=== PATIENT | male | born 1950 | race Caucasian/White ===

== ENCOUNTER 2020-05-13 07:42 | Outpatient (REF) | payer MEDICARE, SELFPAY | END 2020-05-13 07:43 | disposition home or self-care (01) | LOC: HO.WFDLDS 07:42 | PROVIDERS: Visit Provider Internal Medicine | DX: Z20.828 Contact with and (suspected) exposure to other viral communicable diseases (principal) | CPT/HCPCS: C9803; U0003 ==

== ENCOUNTER 2020-06-18 09:40 | Outpatient (REF) | payer MEDICARE, SELFPAY | END 2020-06-18 09:41 | disposition home or self-care (01) | LOC: HO.WFDLDS 09:40 | PROVIDERS: Visit Provider Internal Medicine | DX: Z20.828 Contact with and (suspected) exposure to other viral communicable diseases (principal) | CPT/HCPCS: 36415; C9803; U0003 ==

== ENCOUNTER 2024-12-06 09:06 | Outpatient (AMB) | payer MEDICARE, MEDICAID, SELFPAY ==
--- NOTE | 2024-12-06 09:11 | MHC.PC.OV ---
Vital Signs 12/06/24 09:20 Height 5 ft 6 in Weight 180 lb 4 oz BMI 29.1 BP 124/72 Blood Pressure Location Lt brachial Position Sitting Respiration 12 Pulse 68 Pulse Source Pulse Oximeter Temp 97.2 F Temp Source Oral Pulse Oximetry (%) 96 Oxygen Delivery Method Room Air Intake Visit Reasons: Est. 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: No Allergies No Known Allergies Allergy (Verified 12/06/24 09:42) Medication List - Last Reconciled 12/06/24 by Tootie Schmitt, [facility]- albuterol sulfate 90 mcg/actuation inhalation atorvastatin 20 mg PO DAILY celecoxib 200 mg PO DAILY cetirizine 10 mg PO DAILY PRN diclofenac sodium 3% grams topical BID PRN ergocalciferol (vitamin D2) 1,250 mcg PO QWEEK escitalopram oxalate 10 mg PO DAILY fluticasone propion-salmeterol 250-50 mcg/dose (Wixela Inhub) inhalation BID fluticasone propionate 50 mcg/actuation 1 spray intranasal BID PRN gabapentin 100 mg PO BEDTIME PRN hydroxyzine HCl 50 mg PO QID PRN ibuprofen 400 mg PO Q8H simethicone (Gas Relief (simethicone)) 125 mg PO BID-QID PRN triamcinolone acetonide 0.1% topical BID Tobacco use date assessed: 12/06/24 Fall risk assessment: No Falls in past year Last assessed Fall Risk: 12/06/24 Dental Screening Dental Screen Date: 12/06/24 Did you have a dental visit in the last 12 months?: Yes Did you have a dental problem in the last 6 months where you did not have access to dental care?: No Was dental information given to patient?: Patient has dentist HPI HPI Comments History of Present Illness Details 74 y/o M with HLD, MDD, Asthma, seasonal allergies, Vit d def SurgHx: hx of back surgery L5 discectomy, abd hernia repair FHx: SocHx: born [place], lives in [place] w/ 1 family member Health Maintenance: Colon: Vaccines AAA screen EKG: Norman of Care: Visual Acuity: Hearing Screening: ACP: Dietary/Nutrition/Exercise Edu provided: Y Here today to est care Previous PCP: Dr Mckeon, no records c/o Pain in L leg, 1 year ago, comes and goes. Starts in hip and goes to L knee. Rates pain 6/10 Described as sharp Sometimes hard to move leg Hip hurts to touch Alleviating: topical tx Exac: Moving Denies fever, chills, swelling. Pain in LLQ started 1 year ago; intermittent; walking makes it worse. Had a hernia repair in this area Reports normal elimination, normal intake Denies n/v Worries about memory, forgets a lot started a few months ago Family has not noticed this Has not gotten lost while driving; stays local Does not forget names Manages own finances Forgets to take meds at times. Has dizziness sometimes that makes him feel very tired. Denies chest pain or syncope. Trouble sleeping started 1 mo ago, wakes at 12 and cannot go back to bed Takes all meds as directed Reports used to be a heavy drinker, no longer drinks. asthma well controlled allergies well controlled mood stable Exam Awake alert NAD Scleras nonicteric bilat, PERRLA No murmur, rub or gallop, RRR occassional pauses, w position change c/o dizziness that is self limiting, EKG done showing NSR with low voltage Clear and dim throughout Abd soft, protrubent w/ surgical scars from extensive hernia repair, he has pain on the distal aspect of his incision in the LLQ w/o rebound, + pain in RUQ, + hepatomegaly, visable abd veins + PP bilat, FROM L leg, antalgic gait, pain over L lateral thigh and into hip with deep palpation Pleasant, cooperative, AOx3 Senile purpura bilat arms Plan Labs today to est baseline EKG completed Holter and Echo to be done at [facility] Xray L hip/pelvis Consider sleep study for memory and sleep issues Hold off on any referral for abd at this time. Will try to get records and review his labs. RTO in 2 weeks for a close interim fu I have requested his records from [facility] Total time spent caring for the patient today was 60 minutes. This includes time spent before the visit reviewing the chart, time spent during the visit, and time spent after the visit on documentation, reviewing laboratory results, diagnostic imaging, medications, performing a medically necessary evaluation, counseling on diagnoses, care coordination, ordering appropriate tests, ordering appropriate medications, review of tests performed by other providers, reporting test results with the patient, communication with other healthcare providers. . [facility] Medical History (Updated 12/06/24 @ 10:25 by Tootie Schmitt [facility]) Allergies Anxiety and depression No pertinent family history Surgical History (Updated 12/06/24 @ 10:16 by Tootie Schmitt [facility]) History of back surgery No pertinent past surgical history S/P hernia repair Social History (Updated 12/06/24 @ 09:23 by Richie Lr MA) Household Members: Other Household Members Other:: stepson Both parents involved: No Caregiver staying overnight: No Housing: House Are you a primary vision care associate to a significant other at home: No Do you presently have visiting nurse or other home services: No 75 years or older and lives alone: No Alcohol intake: never Patient Tobacco Use Status: Never used Tobacco e-Cigarette/Vaping Use: Never Used Second Hand Smoke Exposure: No service: No Current occupational status: retired Cognitive needs: No Hearing needs: No Vision needs: Yes (wear glasses) Questionnaire PHQ-9 Over the last 2 weeks, how often have you been bothered by any of the following problems? 1. Little interest or pleasure in doing things: several days 2. Feeling down, depressed, or hopeless: several days 3. Trouble falling or staying asleep, or sleeping too much: several days 4. Feeling tired or having little energy: more than half the days 5. Poor appetite or overeating: not at all 6. Feeling bad about yourself - or that you are a failure or have let yourself or your family down: not at all 7. Trouble concentrating on things, such as reading the newspaper or watching television: not at all 8. Moving or speaking so slowly that other people could have noticed. Or the opposite - being so fidgety or restless that you have been moving around a lot more than usual: not at all 9. Thoughts that you would be better off or of hurting yourself in some way: not at all Total score: 5 Depression Screening Interpretation: Positive Depression Screening Follow-up: Existing condition and Declines treatment Depression Screening Done: Yes 64945 - PHQ-9 Billing: Yes Source: Developed by Drs. Rangel Mendez, Lilliana Degroot, Magen Chavez and colleagues, with an educational juaquin from [employer]. Thrive Questionnaire Date Thrive assessed: 12/06/24 I am a: Patient What is your living situation today?: I have a steady place to live Within the past 12 months, did the food you bought not last and you didn't have the money to get more?: Never true Within the past 12 months, did you worry whether your food would run out before you got money to buy more?: Never true Do you have trouble paying for medicines?: No Do you have trouble getting transportation to medical appointments?: No Do you have trouble paying your heating and electricity bill?: No Do you have trouble taking care of your child, family member or friend?: No Do you have trouble with day-to-day activities such as bathing, preparing meals, shopping, managing finances, etc.?: No Are you currently unemployed and looking for a job?: No Are you interested in more education?: No THRIVE Score: 0 AUDIT C Alcohol Use Questionnaire (AUDIT-C) 1. How often do you have a drink containing alcohol?: Never 3. How often do you have six or more drinks on one occasion?: Never Total Score: 0 Score Reviewed/Action Taken: Yes YUMIKO-7 AMB Questionnaire YUMIKO-7 Date YUMIKO - 7 assessed: 12/06/24 Feeling nervous, anxious, or on edge: 0 = Not at all Not being able to stop or control worryin = Not at all Worrying too much about different things: 0 = Not at all Trouble relaxin = Not at all Being so restless that it is hard to sit still: 0 = Not at all Becoming easily annoyed or irritable: 0 = Not at all Feeling afraid as if something awful might happen: 0 = Not at all Total YUMIKO-7 score (0-4 normal; 5-9 mild; 10-14 moderate; 15-21 severe): 0 Source: Developed by Drs. Rangel Mendez, Lilliana Degroot, Magen Chavez and colleagues, with an educational juaquin from [employer]. YUMIKO-7 Assessment Billing YUMIKO-7 Assessment Tool: YUMIKO-7 Assessment 73794 ACT Questionnaire In the past 4 weeks, how much of the time did your asthma keep you from getting as much done at work, school or at home?: None of the time During the past 4 weeks, how often have you had shortness of breath?: Not at all During the past 4 weeks, how often did your asthma symptoms wake you up at night or earlier than usual in the morning?: Not at all During the past 4 weeks, how often have you had to use your rescue inhaler or nebulizer medication?: Not at all How would you rate your asthma control during the past 4 weeks?: Completely controlled ACT Interpretation: Negative Score: 25 Physical exam (Primary Care) Vital Signs: Last Vital Signs Temp 97.2 F 12/06/24 09:20 Pulse 68 12/06/24 09:20 Resp 12 12/06/24 09:20 BP 124/72 12/06/24 09:20 Pulse Ox 96 12/06/24 09:20 Oxygen Delivery Method Room Air 12/06/24 09:20 BMI result Body Mass Index 29.1 Tobacco/Smoking Status: Tobacco use Status Tobacco use date assessed 12/06/24 12/06/24 09:16 Patient Tobacco Use Status Never used Tobacco 12/06/24 09:23 e-Cigarette/Vaping Use Never Used 12/06/24 09:23 PHQ-9: PHQ-9 Score PHQ-9: Total score 5 12/06/24 09:16 Depression Screening Interpretation: Positive Depression Screening Follow-up: Existing condition and Declines treatment Thrive Assessment: Date of Thrive Assessment Date Thrive assessed 12/06/24 12/06/24 09:16 Office Procedures EKG 58110-[id number], Complete Coding Level of Care Code New Pt Level 5 (59488) Complex EM visit Add On G2211 Diagnoses Encounter to establish care Z76.89 Mixed hyperlipidemia E78.2 Hyperlipidemia type: mixed hyperlipidemia Subjective memory complaints R41.89 History of ETOH abuse F10.11 Right upper quadrant abdominal tenderness with rebound tenderness R10.821 Presence of rebound: present Lateral pain of hip M25.559 Dizziness R42 Low ventricular voltage present on electrocardiography R94.31 Mild episode of recurrent major depressive disorder F33.0 Major depression episode severity: mild Mild intermittent asthma in adult without complication J45.20 Seasonal allergies J30.2 Vitamin D deficiency E55.9 Senile purpura D69.2 CPT Codes EKG - CPT: 71250-Rovjdlcthqbgmboeq, Complete ([id number]) Additional Codes YUMIKO-7 Assessment Billing - YUMIKO-7 Assessment Tool: YUMIKO-7 Assessment 86594 ([id number]) PHQ-9 - 56402 - PHQ-9 Billing: Yes ([id number]) Asthma Control Questionnaire - ACT Interpretation: Negative ([id number]) Assessment & Plan Assessment & Plan (1) Encounter to establish care: Code(s): Z76.89 - Persons encountering health services in other specified circumstances (2) Hyperlipidemia: Code(s): E78.5 - Hyperlipidemia, unspecified Category: Medical Qualifiers: Hyperlipidemia type: mixed hyperlipidemia Qualified Code(s): E78.2 - Mixed hyperlipidemia (3) Subjective memory complaints: Code(s): R41.89 - Other symptoms and signs involving cognitive functions and awareness Category: Medical (4) History of ETOH abuse: Code(s): F10.11 - Alcohol abuse, in remission Category: Medical (5) RUQ abdominal tenderness: Code(s): R10.811 - Right upper quadrant abdominal tenderness Category: Medical Qualifiers: Presence of rebound: present Qualified Code(s): R10.821 - Right upper quadrant rebound abdominal tenderness (6) Lateral pain of hip: Comment: Left Code(s): M25.559 - Pain in unspecified hip Category: Medical (7) Dizziness: Code(s): R42 - Dizziness and giddiness Category: Medical (8) Low ventricular voltage present on electrocardiography: Onset Date: 12/06/24 Code(s): R94.31 - Abnormal electrocardiogram [ECG] [EKG] Category: Medical (9) MDD (major depressive disorder), recurrent episode: Code(s): F33.9 - Major depressive disorder, recurrent, unspecified Category: Medical Qualifiers: Major depression episode severity: mild Qualified Code(s): F33.0 - Major depressive disorder, recurrent, mild (10) Mild intermittent asthma in adult without complication: Code(s): J45.20 - Mild intermittent asthma, uncomplicated Category: Medical (11) Seasonal allergies: Code(s): J30.2 - Other seasonal allergic rhinitis Category: Medical (12) Vitamin D deficiency: Code(s): E55.9 - Vitamin D deficiency, unspecified Category: Medical (13) Senile purpura: Code(s): D69.2 - Other nonthrombocytopenic purpura Category: Medical Plan . Orders: Orders IRON PROFILE Today E78.5 - Hyperlipidemia, unspecified, Z76.89 - Persons encountering health services in other specified circumstances Prostate Specific Antigen Scr Today E78.5 - Hyperlipidemia, unspecified, Z76.89 - Persons encountering health services in other specified circumstances RPR Monitor reflex titer Today R41.89 - Other symptoms and signs involving cognitive functions and awareness Erythrocyte Sedimentation Rate Today R41.89 - Other symptoms and signs involving cognitive functions and awareness Liver Fibrosis Pnl Today F10.11 - Alcohol abuse, in remission, R10.811 - Right upper quadrant abdominal tenderness Hepatitis A,B,C Profile Today F10.11 - Alcohol abuse, in remission, R10.811 - Right upper quadrant abdominal tenderness XR hip LT w PEL1V Today M25.559 - Pain in unspecified hip CA echo transthoracic complete Today R42 - Dizziness and giddiness, R94.31 - Abnormal electrocardiogram [ECG] [EKG], Z87.19 - Personal history of other diseases of the digestive system, Z98.890 - Other specified postprocedural states Complete Blood Count no Diff Today E78.5 - Hyperlipidemia, unspecified, Z76.89 - Persons encountering health services in other specified circumstances Comprehensive Met. Panel Today E78.5 - Hyperlipidemia, unspecified, Z76.89 - Persons encountering health services in other specified circumstances Ferritin Today E78.5 - Hyperlipidemia, unspecified, Z76.89 - Persons encountering health services in other specified circumstances Lipid Panel Today E78.5 - Hyperlipidemia, unspecified, Z76.89 - Persons encountering health services in other specified circumstances Microalbumin, Random (w Creat) Today E78.5 - Hyperlipidemia, unspecified, Z76.89 - Persons encountering health services in other specified circumstances TSH reflex Free T4 Today E78.5 - Hyperlipidemia, unspecified, Z76.89 - Persons encountering health services in other specified circumstances HIV Ab/Ag Today R41.89 - Other symptoms and signs involving cognitive functions and awareness ECG holter monitor 48 hour Today R42 - Dizziness and giddiness, R94.31 - Abnormal electrocardiogram [ECG] [EKG], Z87.19 - Personal history of other diseases of the digestive system, Z98.890 - Other specified postprocedural states Medications: New triamcinolone acetonide 0.1% 1 appl topical BID 453.6 grams 2RF Patient Instructions: Walk-In Care (Urgent Care): We Make it Easy Walk-in for urgent medical issues such as: ? Seasonal Allergies ? Insect Bites ? Cough ? Diarrhea ? Acute Asthma Attacks ? Back, Knee or Joint Pain ? Ear Infection ? Fever without a Rash ? Headaches ? Nausea ? [place] Eye, Rash or Skin Irritation ? Sore Throat ? Sports Physicals ? Vomiting Most insurances are accepted. Patients do not need to be part of the [facility] to seek care at the walk-in clinic. Locations [address] [facility] , [place] [address] ? [phone] [facility] Walk-In Care in [place] provides services to ages 18 and over. Open Tuesday-Tuesday: 8 a.m. to 5 p.m. and Tuesday: 9 a.m. to 3 p.m.* *Hours may vary due to staffing availability. To confirm Walk-In Care hours in [place], please call [phone]. [address] [place] [address] ? [phone] [facility] Walk-In Care in [place] provides services to ages 12 and over. Open Tuesday-Tuesday: 8 a.m. to 5 p.m. Hours may vary due to staffing availability. To confirm Walk-In Care hours in [place], please call [phone]. LABORATORY SERVICES: [facility] ? Primary Location [address] [place] [address] Tuesday through Tuesday 6:00 AM ? 5:00 PM Tuesday 7:00 AM ? 11:00 AM* [phone] The [facility] is centrally located near the front entrance of the Medical Center for easy outpatient access. Convenient parking is provided for outpatients. *Hours may vary due to staffing availability. To confirm Laboratory hours for any location, please call [phone]. Offsite Location For your convenience, we offer offsite laboratory draw stations at the following locations: [address] [place] [address] ? [facility] [address], [address] Tuesday through Tuesday 7:30 AM ? 1:00 PM* [phone] *Hours may vary due to staffing availability. To confirm Laboratory hours for any location, please call [phone]. [place] ? [address] Tuesday through Tuesday 6:00 AM ? 3:30 PM* Tuesday 6:30 AM ? 3 PM* [phone] *Hours may vary due to staffing availability. To confirm Laboratory hours for any location, please call [phone]. [address] [facility] Tuesday through Tuesday 7:30 AM ? 4:00 PM* [phone] *Hours may vary due to staffing availability. To confirm Laboratory hours for any location, please call [phone]. [address] [facility] Tuesday through 9:00 AM ? 4:00 PM* *Hours may vary due to staffing availability. To confirm Laboratory hours for any location, please call [phone]. Appointments are not necessary. Walk-ins are welcome. Like all the departments throughout the [facility], our Lab undergoes frequent reviews to ensure the quality and accuracy of test results, and our staff takes special pride in its status as a nationally accredited facility. Patient Portal: ONE PATIENT. ONE RECORD. BETTER CARE. [facility] has a fully integrated, cutting-edge mobile electronic health information system that has revolutionized the way we care for our patients and manage our organization. This system improves communication and coordination enabling us to provide safe, higher-quality care, and an overall positive experience for staff and patients. Our first priority, as always, is to deliver the highest quality care possible. The system is running in the background supporting that priority. This portal is for all [facility] services and practices. If you are experiencing any technical difficulties with enrolling or logging into the Patient Portal please complete the [facility] Patient Portal Technical Support Form. [facility] now offers a new secure on-line interactive tool for patients to review their health information ? ?Patient Portal. This interactive web portal will enable patients and their families to take an active role in their care by providing easy, secure access to their health information via the internet. The Patient Portal provides patients with instant access to their health information, including laboratory results, medications, allergies, demographic information, visit history, and more. In addition to managing their own care, parents and health care proxies with authorized consent will appreciate the ability to access the records of those individuals for whom they provide care. Please note: if you wish to gain access (Proxy) to another patient?s portal, you will be required to come to the Medical Records Department in person at [facility]. Both the patient giving proxy access and the proxy will need to provide photo identification and complete the appropriate authorization. The Patient Portal also allows track their appointments online. The [facility] Patient Portal also saves patients time by allowing them to submit updates to their demographic and contact information prior to their visits. Portal email notifications will also alert patients to any new activity on their portal, such as test results and new appointments. In order to initially enroll in the [facility] Patient Portal, you will need to enter some required information including the following: your [facility] Medical Record number your personal home email address name date of Please note: In order to enroll in the [facility] Patient Portal, we need to have your email address on file in your electronic medical record. ?The email address needs to be specific for one person (yourself) in order for your Portal enrollment to be successful. ?You can update your email address in person with our Registration staff when you are registering for a hospital visit. ?Otherwise, you will need to come to the Health Information Management (Medical Records) Department at [facility]. ?We are open from Tuesday ? Tuesday from 7:30 a.m. ? 4:30 p.m. ?You will be required to present a photo id. Once you have successfully enrolled in the Patient Portal, you will receive a one-time user id and password for the Portal, sent to your email address. ?This will allow you to log into the Patient Portal within 99 hrs and reset your own logon id and password, and define personal security questions. ?Once your permanent login and password have been set, you can log into the [facility] Patient Portal at any time via the blue button above or from the Portal Logon button on any page of the [facility] website. [facility] encourage all of our patients to enroll in Patient Portal as it presents a valuable opportunity for patients and their families to actively participate in their care and stay healthy Welcome to [facility]. ?We look forward to working with you.
[2024-12-06 09:20] VITALS: BP 124/72; PULSE 68; RESP 12; TEMP 36.2; O2SAT 96; BMI 29.1
== END 2024-12-06 10:16 | disposition home or self-care (01) ==
LOC: HO.HMCFM 09:07
PROVIDERS: PCP Nurse Practitioner Family; Visit Provider Nurse Practitioner Family
DX: Z76.89 Persons encountering health services in other specified circumstances (principal); E78.2 Mixed hyperlipidemia; R41.89 Other symptoms and signs involving cognitive functions and awareness; F10.11 Alcohol abuse, in remission; R10.821 Right upper quadrant rebound abdominal tenderness; M25.559 Pain in unspecified hip; R42 Dizziness and giddiness; R94.31 Abnormal electrocardiogram [ECG] [EKG]; F33.0 Major depressive disorder, recurrent, mild; J45.20 Mild intermittent asthma, uncomplicated; J30.2 Other seasonal allergic rhinitis; E55.9 Vitamin D deficiency, unspecified; D69.2 Other nonthrombocytopenic purpura

== ENCOUNTER → 2024-12-06 09:06 | Outpatient (BNVA) | payer MEDICARE, SELFPAY | PROVIDERS: PCP Nurse Practitioner Family; Visit Provider Nurse Practitioner Family | DX: Z13.89 Encounter for screening for other disorder (principal) ==

== ENCOUNTER 2024-12-06 10:44 | Outpatient (REF) | payer MEDICARE, SELFPAY ==
[2024-12-06 14:35] LABS: Hematocrit 38.1 % (42.0-52.0); Hemoglobin 12.6 g/dl (14.0-18.0); Mean Corpuscular HGB Conc 33.1 g/dl (31.0-36.0); Mean Corpuscular Hemoglobin 27.3 pg (27.0-33.0); Mean Corpuscular Volume 82.6 fL (80.0-98.0); Mean Platelet Volume 8.7 fL (9.4-12.4); Platelet Count 196 X10*3/uL (160-400); Red Blood Count 4.61 X10*6/uL (4.60-5.80); Red Cell Distribution Width 14.6 % (11.0-16.0); White Blood Count 4.2 X10*3/uL (4.8-10.8)
[2024-12-06 14:57] LABS: Alanine Aminotransferase 13 U/L (0-40); Alkaline Phosphatase 63 U/L (39-117); Anion Gap 11 (12-20); Aspartate Amino Transferase 18 U/L (5-37); Bilirubin Total 0.6 mg/dL (0.0-1.0); Blood Urea Nitrogen 12 mg/dL (9-16); Carbon Dioxide 28 mmol/L (22-29); Chloride 110 mmol/L (96-108); Cholesterol 176 mg/dL (<200); Estimated Glomerular Filt Rate 57; Glucose Random 88 mg/dL (60-115); HDL Cholesterol 49 mg/dL (>40); Iron 145 mcg/dL (45-160); LDL Cholesterol Calculated 102 mg/dL (<100); Percent Iron Saturation 59 % (15-50); Potassium 4.1 mmol/L (3.3-5.1); Sodium 145 mmol/L (135-145); Total Iron Binding Capacity 244 mcg/dL (228-428); Total Protein 6.4 g/dL (6.5-8.0); Triglycerides 127 mg/dL (<150); Unsaturated Iron Binding 99 ug/dL
[2024-12-06 15:06] LABS: Prostate Specific Antigen Scr 3.18 ng/mL (<0.05-4.0)
[2024-12-06 15:08] LABS: Creatinine Urine 151.52 mg/dL; Microalbum/Creatinine Ratio Ur 11.8 ug/mg cr (<30)
[2024-12-06 15:19] LABS: Erythrocyte Sedimentation Rate 2 MM/HR (0-15)
[2024-12-06 15:29] LABS: Ferritin 243 ng/mL (20-250)
[2024-12-07 08:29] LABS: HBS Num1 0.01 mIU/mL (0-7.99); HBc Num1 0.08 S/CO (0.00-0.79); HBsAGNum1 0.48 S/CO (0.00-0.99); HIV AB/AG Nonreactive (Nonreactive); HIV Num 1 0.05 S/CO (0.00-0.99); Hepatitis A Antibody IgM 0.17 Index (0-0.79); Hepatitis B Core Antibody Nonreactive (Nonreactive); Hepatitis B Surface Antigen Negative (Negative); ~HepC Num1 0.09 S/CO (0.00-0.79); ~Hepatitis A Antibody IgM Nonreactive (Nonreactive); ~Hepatitis B Surface Antibody NONREACTIVE (Nonreactive); ~Hepatitis C Antibody Nonreactive (Nonreactive)
[2024-12-07 11:43] LABS: RPR Rapid Plasma Reagin NON-REACTIVE (NON-REACTIVE)
[2024-12-17 01:54] LABS: FIB-ALT 9 U/L (9-46); FIB-Alpha-2-Macroglobulin 151 mg/dL (106-279); FIB-Apolipoprotein A1 162 mg/dL (94-176); FIB-GGT 25 U/L (3-70); FIB-Haptoglobin 151 mg/dL (43-212); FIB-Total Bilirubin 0.5 mg/dL (0.2-1.2); Liver Fibrosis Score 0.19; Liver Fibrosis Stage F0; Nec Inflam Act Grade A0; Nec Inflam Act Score 0.02
== END 2024-12-06 10:45 | disposition home or self-care (01) ==
LOC: HO.WFDLDS 10:44
PROVIDERS: Visit Provider Nurse Practitioner Family
DX: Z76.89 Persons encountering health services in other specified circumstances (principal); E78.2 Mixed hyperlipidemia; R41.89 Other symptoms and signs involving cognitive functions and awareness; F10.11 Alcohol abuse, in remission; R10.821 Right upper quadrant rebound abdominal tenderness; M25.552 Pain in left hip; R42 Dizziness and giddiness; R94.31 Abnormal electrocardiogram [ECG] [EKG]; F33.0 Major depressive disorder, recurrent, mild; J45.20 Mild intermittent asthma, uncomplicated; J30.2 Other seasonal allergic rhinitis; E55.9 Vitamin D deficiency, unspecified; D69.2 Other nonthrombocytopenic purpura; Z13.31 Encounter for screening for depression; Z13.39 Encounter for screening examination for other mental health and behavioral disorders; Z11.59 Encounter for screening for other viral diseases; Z72.89 Other problems related to lifestyle; Z12.5 Encounter for screening for malignant neoplasm of prostate
CPT/HCPCS: 36415; 80053; 80061; 81596; 82043; 82570; 82728; 83540; 84153; 84443; 85027; 85652; 86592; 86704; 86706; 86709; 86803; 87340; 87389; 93005; 96127; 96160; 99202

== ENCOUNTER 2025-01-02 08:15 | Outpatient (AMB) | payer MEDICARE, MEDICAID, SELFPAY ==
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
[2025-01-02 08:23] VITALS: BP 136/67; PULSE 64; RESP 12; TEMP 36.2; O2SAT 98; BMI 29.3
== END 2025-01-02 09:12 | disposition home or self-care (01) ==
LOC: HO.HMCFM 08:16
PROVIDERS: PCP Nurse Practitioner Family; Visit Provider Nurse Practitioner Family
DX: J41.0 Simple chronic bronchitis (principal); M25.552 Pain in left hip; L30.8 Other specified dermatitis; Z59.41 Food insecurity; Z23 Encounter for immunization; E55.9 Vitamin D deficiency, unspecified; R41.89 Other symptoms and signs involving cognitive functions and awareness; Z87.891 Personal history of nicotine dependence; D50.8 Other iron deficiency anemias; R73.03 Prediabetes

== ENCOUNTER → 2025-01-02 08:15 | Outpatient (BNVA) | payer MEDICARE, MEDICAID, SELFPAY | PROVIDERS: PCP Nurse Practitioner Family; Visit Provider Nurse Practitioner Family | DX: M25.552 Pain in left hip (principal); E78.5 Hyperlipidemia, unspecified; L29.9 Pruritus, unspecified; D64.9 Anemia, unspecified; E55.9 Vitamin D deficiency, unspecified; R41.89 Other symptoms and signs involving cognitive functions and awareness; J41.0 Simple chronic bronchitis; D50.8 Other iron deficiency anemias; R73.03 Prediabetes; L30.9 Dermatitis, unspecified; Z23 Encounter for immunization; Z59.41 Food insecurity; Z87.891 Personal history of nicotine dependence | CPT/HCPCS: 90471; 90715; 96127; 99212 ==

== ENCOUNTER → 2025-01-03 09:24 | Outpatient (BNVA) | payer MEDICARE, MEDICAID, SELFPAY | PROVIDERS: PCP Nurse Practitioner Family | DX: Z59.41 Food insecurity (principal) | CPT/HCPCS: 99211 ==